=== PATIENT | male | born 1950 | race Caucasian/White ===

== ENCOUNTER 2017-01-24 08:50 | Inpatient (IN) | payer MEDICARE, BC ==
--- NOTE | ~2017-01-24 | OP ---
Record Of Operation [facility] [address] [place]. [address] NAME: WES ROSALES : 54 STATUS : ADM IN PAT#: [id number] AGE: 66 ADM/REG DATE : 01/24/17 MR#: [id number] REPORT SERV DATE: 01/25/17 DICTATED BY: MARTIN RAO DATE: 01/25/17 REPORT STATUS : Draft TRANSCRIBED BY: MODL DATE: 01/25/17 DATE OF PROCEDURE: 01/24/2017 TITLE OF OPERATION: 1. Robot-assisted laparoscopic left partial nephrectomy. 2. Intraoperative ultrasound of left kidney with image documentation. PREOPERATIVE DIAGNOSIS: Left renal mass. POSTOPERATIVE DIAGNOSIS: Left renal mass. INDICATIONS: Mr. Rosales is a 66-year-old male with a 2.5 cm enhancing left renal mass. He was given options including surveillance, surgical therapy, and ablation. He has decided to proceed with a laparoscopic robot-assisted left partial nephrectomy. ANESTHESIA: General. COMPLICATIONS: None. IMPLANTS: 1. 16-Uzbek Klein catheter. 2. #10 round KANDY drain. SPECIMEN: Left kidney mass. NARRATIVE: The patient was brought to the operating room, identified by his wristband. General anesthesia was induced. Ancef was given for preoperative antibiotics. A 16-Uzbek Klein catheter was placed into his bladder. The balloon was inflated with 10 mL of sterile water. His urine was clear. He was placed in the modified left flank position and secured to the bed with pads and tape. He was then prepped and draped in sterile fashion. Ancef was given for preoperative antibiotics. His abdomen was insufflated to a pressure of 15 mmHg using a Veress needle. His abdomen was entered with an 8 mm port in the left upper quadrant. The abdomen was inspected. There were no significant adhesions. A standard X-Y port placement was performed with four 8 mm ports in the left side of the body. A 12 mm port was placed in the upper midline for an special education assistant port. The patient was then rotated to his right. The robot was docked. I began the operation by dropping the left colon along the white line of Toldt exposing retroperitoneum. This was reflected inferiorly to expose the aorta. The splenorenal ligaments were then divided sharply. The pancreas was identified and sharply taken off the kidney, care was taken not to injure the pancreas. Next, the ureter was identified and the retroperitoneum was entered beneath the ureter lifting the kidney off the psoas muscle. Of note, the patient had a tremendous amount of perinephric fat. Thus creating difficulty with exposing the hilum and lifting the kidney. Nonetheless, all fibrofatty tissue leading up to the hilum was sharply divided. A solitary renal artery and vein were identified. The renal artery was dissected free proximally near its origin in the aorta to ensure appropriate clamping at the time of partial nephrectomy. The kidney was then dropped back into its orthotopic position. The Gerota's fascia was Record Of Operation [facility] [address] [place]. [address] NAME: WES ROSALES : 54 STATUS : ADM IN PAT#: [id number] AGE: 66 ADM/REG DATE : 01/24/17 MR#: [id number] REPORT SERV DATE: 01/25/17 DICTATED BY: MARTIN RAO DATE: 01/25/17 REPORT STATUS : Draft TRANSCRIBED BY: DOMINGA DATE: 01/25/17 incised over the proximal location of the tumor. A prolonged period of time was performed defatting the kidney as the patient had a tremendous amount of mary and paranephric fat. The tumor was identified and normal parenchyma was identified circumferentially around the tumor. Intraoperative ultrasound was performed of the left kidney to confirm this was the only site of tumor. The tumor was also identified and the capsule was scored at the location of the pending partial nephrectomy to ensure appropriate resection. The ultrasound was then removed. A single bulldog clamp was placed over the artery causing renal ischemia. The tumor was then enucleated free from the surrounding parenchyma. The tumor was precisely identified and not entered. The tumor was then placed into an EndoCatch bag. Then, the base of the tumor was oversewn with two overlapping 3-0 V-Loc sutures, two 2-0 Vicryl sutures were used to close the renorrhaphy in a sliding Weck technique. The kidney was then unclamped. Total ischemia time was 14 minutes. There was no ongoing bleeding. All needles were sequentially removed as were bulldog clamps. The kidney was inspected. There was no ongoing bleeding. A Surgifoam dressing was placed over the renorrhaphy site, and the perinephric fat was replaced with an additional bolster. The robot was then undocked. A #10 KANDY drain was placed through the inferior most robotic port. The ports were removed under direct vision. The supraumbilical incision was enlarged to the skin and fascial levels. The tumor and the bag were then removed, sent to Pathology as a left renal mass. The fascia was closed with a 0 Vicryl suture in a [id number] fashion. The wounds were irrigated clear. The skin was closed with a 4-0 Monocryl suture. A Dermabond dressing was placed. The patient was awoken from anesthesia and transferred to recovery room in stable condition. There were no complications. JROWDY/MODL Martin Rao MD / [id number] CC: MD Nikita Gary MD
[~2017-01-24 08:50] MED LIST: ALEVE220 MG PO; ANDRODERM5 TOP; ANDROGEL5 TOP; ASAB PO; BAC PO; BENTYL20 PO; CAT2 PO; CEREFOLI1; CIALIS10 MG PO; CRESTOR10 PO; CYMBALTA60 PO; FISH-EPA1000 MG PO; FLEX PO; GLUCPH PO; HALF81 PO; HCTZ25B PO; HYDROCHLOROT25 MG PO; LIDODERM T; LISINOPRIL40 MG PO; LOP50 PO; LORT7 PO; LORTAB10 PO; MSCONT15 PO; MULTIPLE VIT PO; NEUR600 PO; NORCO PO; NORCO1 TA1 PO; NORCO1 TAB PO; NORV10 PO; NORV5 PO; OPANA10 MG PO; OS500 PO; OS500+D PO; OXAPROZIN600 MG PO; PCET PO; PERCOCET1 TA2 PO; PERCOCET1 TA4 PO; PRILO PO; PRISTIQ50 MG PO; SENOKOTS PO; VERELAN360 MG PO; VITAMIN D1000 UNI1 PO; XODOL 10-300 T1 EACH PO; ZOFRAN8 PO
[2017-01-24 15:12] LABS: BUN (BLOOD UREA NITROGEN) 16 MG/DL (6-23); CALCIUM, SERUM 8.9 MG/DL (8.5-10.4); CHLORIDE, SERUM 108 MMOL/L (96-112); CO2 (CARBON DIOXIDE) 27 MMOL/L (24-34); GFR AFRICAN AMERICAN 52 ML/MIN (>=60); GFR NON AFRICAN AMERICAN 45 ML/MIN (>=60); GLUCOSE, SERUM 170 MG/DL (60-99); POTASSIUM, SERUM 4.5 MMOL/L (3.5-5.3); SODIUM, SERUM 143 MMOL/L (135-148)
[2017-01-24 15:18] LABS: CREATININE 1.59 MG/DL (0.70-1.30)
[2017-01-24 15:55] LABS: BASOPHILS 0.1 %; BASOPHILS ABSOLUTE 0.01 10/3/uL (0.0-0.16); EOSINOPHILS 0.1 %; EOSINOPHILS ABSOLUTE 0.01 10/3/uL (0.0-0.53); HEMATOCRIT 39.5 % (40.0-51.0); HEMOGLOBIN 13.5 g/dL (13.6-17.8); IMMATURE GRANULOCYTES 0.2 %; IMMATURE GRANULOCYTES ABSOLUTE 0.02 10/3/uL (0.0-0.11); LYMPHOCYTES 7.3 %; LYMPHOCYTES ABSOLUTE 0.63 10/3/uL (0.67-4.30); MEAN CORPUS HGB CONC 34.2 g/dL (32.0-36.0); MEAN CORPUSCULAR HEMOGLOB 30.4 pg (26.0-34.0); MEAN PLATELET VOLUME 9.9 fL (9.2-13.0); MONOCYTES 4.6 %; NEUTROPHILS 87.7 %; NEUTROPHILS ABSOLUTE 7.56 10/3/uL (2.02-8.40); PLATELET COUNT 163 10/3/uL (150-400); RBC DISTRIBUTION WIDTH 13.9 % (12.0-16.0); RED CELL COUNT 4.44 10/6/uL (4.7-6.1)
[2017-01-24 16:03] LABS: MANUAL DIFF NO %; WHITE BLOOD CELLS 8.6 10/3/uL (4.5-10.5)
[2017-01-25 07:05] LABS: BASOPHILS 0.1 %; BASOPHILS ABSOLUTE 0.01 10/3/uL (0.0-0.16); EOSINOPHILS 0.2 %; EOSINOPHILS ABSOLUTE 0.02 10/3/uL (0.0-0.53); HEMATOCRIT 37.7 % (40.0-51.0); IMMATURE GRANULOCYTES 0.1 %; IMMATURE GRANULOCYTES ABSOLUTE 0.01 10/3/uL (0.0-0.11); LYMPHOCYTES 10.8 %; MEAN CORPUS HGB CONC 34.5 g/dL (32.0-36.0); MEAN CORPUSCULAR HEMOGLOB 30.6 pg (26.0-34.0); MEAN CORPUSCULAR VOLUME 88.7 fL (80-100); MEAN PLATELET VOLUME 9.8 fL (9.2-13.0); MONOCYTES 6.9 %; MONOCYTES ABSOLUTE 0.58 10/3/uL (0.21-1.20); NEUTROPHILS 81.9 %; NEUTROPHILS ABSOLUTE 6.83 10/3/uL (2.02-8.40); PLATELET COUNT 179 10/3/uL (150-400); RED CELL COUNT 4.25 10/6/uL (4.7-6.1); WHITE BLOOD CELLS 8.4 10/3/uL (4.5-10.5)
[2017-01-25 07:06] LABS: MANUAL DIFF NO %
[2017-01-25 07:11] LABS: BUN (BLOOD UREA NITROGEN) 13 MG/DL (6-23); CALCIUM, SERUM 8.3 MG/DL (8.5-10.4); CHLORIDE, SERUM 106 MMOL/L (96-112); CO2 (CARBON DIOXIDE) 26 MMOL/L (24-34); CREATININE 1.16 MG/DL (0.70-1.30); GFR AFRICAN AMERICAN 77 ML/MIN (>=60); GFR NON AFRICAN AMERICAN 66 ML/MIN (>=60); GLUCOSE, SERUM 139 MG/DL (60-99); POTASSIUM, SERUM 3.8 MMOL/L (3.5-5.3); SODIUM, SERUM 141 MMOL/L (135-148)
[2017-01-26] MEDS ORDERED: DSS PO (11:24)
[2017-07-16] MEDS ORDERED: C5 PO (09:28)
[2017-07-16] MEDS ORDERED: OXYCOD PO (09:28)
== END 2017-01-26 18:25 | disposition home or self-care (01) | DRG 657 ==
LOC: SDC/OF 08:50 → PACU 14:11 → 4SO 16:25
PROVIDERS: Urology
PROC: 0TB14ZZ Excision of Left Kidney, Percutaneous Endoscopic Approach (ICD-10-PCS; principal; 2017-01-24 10:30)
PROC: 8E0W4CZ Robotic Assisted Procedure of Trunk Region, Percutaneous Endoscopic Approach (ICD-10-PCS; principal; 2017-01-24 10:30)
PROC: BT42ZZZ Ultrasonography of Left Kidney (ICD-10-PCS; principal; 2017-01-24 10:30)
DX: D41.12 Neoplasm of uncertain behavior of left renal pelvis (principal); Z68.41 Body mass index [BMI] 40.0-44.9, adult; I10 Essential (primary) hypertension; E78.5 Hyperlipidemia, unspecified; Z87.891 Personal history of nicotine dependence; Z88.3 Allergy status to other anti-infective agents; Z88.8 Allergy status to other drugs, medicaments and biological substances; Z91.013 Allergy to seafood
CPT/HCPCS: 36415; 80048; 82570; 82962; 85025; 86850; 86900; 86901; 88307; 93005; A9270-GY; J0690; J1170; J2250; J2370; J2405; J2710; J2795; J3010